=== PATIENT | female | born 1965 | race Caucasian/White ===

== ENCOUNTER 2021-09-07 09:49 | Outpatient (CLI) | payer BC | END 2021-09-07 09:50 | disposition home or self-care (01) | LOC: BICRAD 09:49 | PROVIDERS: ATTEND Family Medicine | DX: M54.2 Cervicalgia (principal); M54.50 Low back pain, unspecified; M25.511 Pain in right shoulder; M43.16 Spondylolisthesis, lumbar region; M47.816 Spondylosis without myelopathy or radiculopathy, lumbar region; M47.812 Spondylosis without myelopathy or radiculopathy, cervical region | CPT/HCPCS: 72052; 72110 ==

== ENCOUNTER 2021-10-15 10:29 | Outpatient (CLI) | payer BC | END 2021-10-15 10:30 | disposition home or self-care (01) | LOC: ULT 10:29 | PROVIDERS: ATTEND Internal Medicine Gastroenterology | DX: R79.89 Other specified abnormal findings of blood chemistry (principal); K59.00 Constipation, unspecified; Z12.11 Encounter for screening for malignant neoplasm of colon; E03.9 Hypothyroidism, unspecified; R93.2 Abnormal findings on diagnostic imaging of liver and biliary tract | CPT/HCPCS: 76705 ==

== ENCOUNTER 2023-12-15 16:57 | Emergency (ER) | payer MEDICARE ==
[2023-12-15 18:00] LABS: #Eosinphils 0.1 thou/uL (0.0-0.7); #Monocytes 1.2 thou/uL (0.11-0.59); #Neutrophils 5.7 thou/uL (1.40-6.50); %Basophils 0.2 % (0.0-1.0); %Eosinophils 0.6 % (0.0-10.0); %Lymphocytes 25.3 % (21.0-51.0); %Monocytes 12.3 % (0.0-10.0); %Neutrophils 61.3 % (42.0-75.0); Hemoglobin 12.1 g/dL (12.0-16.0); Mean Corpuscular HGB CONC 34.6 g/dL (32.0-36.0); Mean Corpuscular Hemoglobin 30.8 pg (27.0-31.0); Mean Corpuscular Volume 89.1 fl (78.0-98.0); Mean Platelet Volume 8.6 fL (7.4-10.4); Platelet Count 255 10x3/uL (130-400); RBC Distribution Width 11.6 % (11.5-14.5); Red Blood Cell (RBC) Count 3.93 mill/uL (4.20-5.40); White Blood Cell (WBC) Count 9.3 10x3/uL (4.8-10.8)
[2023-12-15 18:14] LABS: Prothrombin Time 13.3 sec (12.0-14.7)
[2023-12-15 18:16] LABS: PTT 26.7 sec (22.9-36.1)
[2023-12-15 18:28] LABS: ALT (SGPT) 32 U/L (8-55); AST (SGOT) 22 U/L (5-34); Albumin 3.9 g/dL (3.5-5.0); Alkaline Phosphatase 101 U/L (40-110); Anion Gap 13 mmol/L (10-20); BUN (Urea Nitrogen) 9 mg/dL (9.8-20.1); Bilirubin, Total 0.4 mg/dL (0.2-1.2); Calc. Creatinine Clearance 0 mL/min (70-130); Calcium 9.3 mg/dL (7.8-10.44); Carbon Dioxide 25 mmol/L (22-29); Chloride 106 mmol/L (98-107); Estimated GFR 82; Globulin 2.5 g/dL (2.4-3.5); Glucose 108 mg/dL (70-105); Potassium 3.8 mmol/L (3.5-5.1); Protein, Total 6.4 g/dL (6.0-8.3); Sodium 140 mmol/L (136-145)
== END 2023-12-15 19:28 | disposition home or self-care (01) ==
LOC: ERS 16:57
DX: M79.661 Pain in right lower leg (principal); A69.20 Lyme disease, unspecified; E03.9 Hypothyroidism, unspecified; Z55.6 Problems related to health literacy; Z75.3 Unavailability and inaccessibility of health-care facilities; Z79.899 Other long term (current) drug therapy
CPT/HCPCS: 36415; 80053; 83605; 85025; 85610; 85730; 86618